=== PATIENT | female | born 1985 | race Caucasian/White ===

== ENCOUNTER → 2017-04-28 | Outpatient (CLI) | payer SELFPAY ==
[~2017-04-28] MED LIST: INSU100I11; INSU100I13
== END | disposition home or self-care (01) ==
LOC: LAB 14:08
PROVIDERS: ATTEND Specialist
DX: Z00.00 Encounter for general adult medical examination without abnormal findings (principal)
CPT/HCPCS: 36415

== ENCOUNTER → 2017-05-13 | Outpatient (CLI) | payer SELFPAY | END | disposition home or self-care (01) | LOC: LAB 12:20 | PROVIDERS: ATTEND Specialist | DX: Z00.00 Encounter for general adult medical examination without abnormal findings (principal) | CPT/HCPCS: 36415 ==